=== PATIENT | male | born 1985 | race Caucasian/White ===

== ENCOUNTER 2016-08-04 22:02 | Emergency (ER) | payer MEDICAID ==
[~2016-08-04] VITALS: Ht 172.7 cm; Wt 68.5 kg
[2016-08-04 22:04] VITALS: Ht 172.7 cm; Wt 68.5 kg
[2016-08-04] MEDS ORDERED: FLUORESCEIN STRIP RIGHT EYE ONE (23:00)
[2016-08-04] MEDS ORDERED: PROPARACAINE 0.5% 15 ML OPH RIGHT EYE ONE (23:00)
[2016-08-04] MEDS ORDERED: ERYTOPOI RIGHT EYE (23:17)
[2016-08-04] MEDS ORDERED: ACET325T33 PO (23:17)
--- NOTE | 2016-08-04 23:23 | ERA ---
ER Documentation Chief Complaint Date/Time DATE: 08/04/16 TIME: 23:18 Chief Complaint right eye redness since 3 hours ago HPI This is a 31-year-old male presenting with a chief complaint of foreign body in the right eye. Patient was walking today when he describes a "rock" getting in the eye. Patient speaks Sudanese and the girlfriend is the slate trimmer and seems reliable. Patient describes the sensation as a foreign body sensation without pain. Patient denies any loss of vision, pain, photophobia or decreased vision or pruritus. Patient has no other complaints at this time. ROS All systems reviewed and are negative except as per history of present illness. Medications Home Meds Active Scripts Erythromycin* (Erythromycin* Ophthalmic) 1 Applic Oint, 1 APPLIC RIGHT EYE QID for 7 Days Prov:ALYCIA HOGAN PA-C 08/04/16 Acetaminophen* (Tylenol*) 325 Mg Tablet, 1 TAB PO Q6 Y for PAIN AND OR ELEVATED TEMP, #20 TAB Prov:ALYCIA HOGAN PA-C 08/04/16 Allergies Allergies: Coded Allergies: No Known Allergy (Unverified , 08/04/16) PMhx/Soc Medical and Surgical Hx: pt denies Medical Hx, pt denies Surgical Hx Hx Alcohol Use: No Hx Substance Use: No Hx Tobacco Use: No Smoking Status: Never smoker Physical Exam Vitals Vital Signs Date Time Temp Pulse Resp B/P Pulse Ox O2 Delivery O2 Flow Rate FiO2 08/04/16 22:04 98.0 72 20 145/86 98 Physical Exam Const: Well appearing Sudanese-speaking 31-year-old male Head: Atraumatic Eyes: Normal Conjunctiva ENT: Bilateral pingueculas bilaterally about 5 mm in diameter. Foreign body visualized with Wood lamp of the superior slightly nasal aspect of right cornea. Minimal injection in the eyes bilaterally. Normal External Ears, Nose and Mouth. Neck: Full range of motion..~ No meningismus. Resp: Clear to auscultation bilaterally Cardio: Regular rate and rhythm, no murmurs Abd: Soft, non tender, non distended. Normal bowel sounds Skin: No petechiae or rashes Back: No midline or flank tenderness Ext: No cyanosis, or edema Neur: Awake and alert Psych: Normal Mood and Affect Results 24 hrs Current Medications Medications (Trade) Dose Ordered Sig/Rigoberto Route PRN Reason Start Time Stop Time Status Last Admin Dose Admin Proparacaine HCl (Alcaine 0.5%) 1 drop ONCE ONCE RIGHT EYE 08/04/16 23:00 08/04/16 23:01 DC Fluorescein Sodium (Nlwnf-X-Arcdk) 1 strip ONCE ONCE RIGHT EYE 08/04/16 23:00 08/04/16 23:01 DC Procedures/MDM Otherwise healthy 31-year-old male presenting with a chief complaint of right foreign body in the cornea. Visual acuity was first on before examination. Visual acuity remained unchanged before and after final examination. Proparacaine was used and a forcing I strep on the lower eyelid with no complications. Was lamp examination revealed no corneal defect but a dark spot resembling a foreign body in the right upper cornea. Slit-lamp examination was used and revealed a foreign body and no other abnormalities other than previously mentioned and the physical examination. Foreign body was then removed with a 21-gauge needle with no complications. Patient's visual acuity again was intact after the examination and removal foreign body. There are no other complaint at this time the patient's vitals are stable and his current condition is appropriate for discharge per will be discharged with discharge instructions and return precautions. Acetaminophen will be given for discomfort and prophylactic erythromycin. Departure Diagnosis: Primary Impression: Foreign body in cornea, right eye, initial encounter Condition: Stable Patient Instructions: Corneal Foreign Body, Removed Additional Instructions: Follow up with your PCP within the next 1-3 days for a more thorough evaluation and a possible referral to a specialist. Return the the emergency department immediately if symptoms worsen or change. If you have any questions regarding medications, ask your pharmacist or us before you leave. If any adverse reactions occur while taking your medications, discontinue the treatment and return to the emergency department immediately. Take your medications as directed, and complete the entire course of treatment. ALYCIA HOGAN PA-C August 04, 2016 23:23
== END 2016-08-05 00:01 | disposition home or self-care (01) ==
LOC: FTE 22:02
DX: T15.01XA Foreign body in cornea, right eye, initial encounter (principal); X58.XXXA Exposure to other specified factors, initial encounter; Y92.9 Unspecified place or not applicable
CPT/HCPCS: 65222; Z7610